=== PATIENT | male | born 1985 | race Caucasian/White ===

== ENCOUNTER 2021-02-09 19:10 | Inpatient (IN) | payer MEDICAID, OTHER ==
[2021-02-09 19:54] LABS: #Eosinphils 0.2 thou/uL (0.0-0.7); #Lymphocytes 1.5 thou/uL (1.20-3.40); #Monocytes 1.7 thou/uL (0.11-0.59); #Neutrophils 9.3 thou/uL (1.40-6.50); %Basophils 0.1 % (0.0-1.0); %Eosinophils 1.9 % (0.0-10.0); %Lymphocytes 11.9 % (21.0-51.0); %Monocytes 13.1 % (0.0-10.0); Mean Corpuscular HGB CONC 33.3 g/dL (32.0-36.0); Mean Corpuscular Hemoglobin 29.8 pg (27.0-31.0); Mean Corpuscular Volume 89.5 fL (78.0-98.0); Mean Platelet Volume 6.6 fL (7.4-10.4); Platelet Count 644 thou/uL (130-400); RBC Distribution Width 10.9 % (11.5-14.5); Red Blood Cell (RBC) Count 3.68 mill/uL (4.70-6.10); White Blood Cell (WBC) Count 12.8 thou/uL (4.8-10.8)
[2021-02-09] MEDS ORDERED: Vancomycin 1 GM/200 ML BAG ONE (19:59)
[2021-02-09] MEDS ORDERED: Cefepime 2 GM VIAL ONE (19:59)
[2021-02-09 20:09] LABS: ALT (SGPT) 28 U/L (8-55); AST (SGOT) 24 U/L (5-34); Albumin 3.3 g/dL (3.5-5.0); Alkaline Phosphatase 81 U/L (40-110); Anion Gap 16 mmol/L (10-20); BUN (Urea Nitrogen) 11 mg/dL (8.9-20.6); Bilirubin, Total 0.6 mg/dL (0.2-1.2); Calc. Creatinine Clearance 0 mL/min (70-130); Calcium 9.4 mg/dL (7.8-10.44); Carbon Dioxide 22 mmol/L (22-29); Chloride 99 mmol/L (98-107); Globulin 4.2 g/dL (2.4-3.5); Glucose 114 mg/dL (70-105); Potassium 3.6 mmol/L (3.5-5.1); Protein, Total 7.5 g/dL (6.0-8.3); Sodium 133 mmol/L (136-145)
[2021-02-09] MEDS ORDERED: Morphine 4 MG/ML VIAL ONE (21:24)
[2021-02-09] MEDS ORDERED: Methocarbamol 500 MG TAB PO PRN (22:49)
[2021-02-09] MEDS ORDERED: Acetaminophen 325 MG TAB PO PRN (22:50)
[2021-02-09] MEDS ORDERED: Ibuprofen 800 MG TAB PO PRN (22:50)
[2021-02-09 23:37] LABS: Bacteria/HPF None Seen HPF (None Seen); Bilirubin Negative (Negative); Blood, Urine Negative (Negative); Clarity Clear (Clear); Glucose, Urine (Dipstick) Normal (Negative); Ketone, Urine Trace mg/dL (Negative); Leukocyte Negative Leu/uL (Negative); Nitrite Negative (Negative); Protein, Urine (Dipstick) 30 mg/dL (Neg-Trace); RBC/HPF 0-3 HPF (0-3); Specific Gravity, Urine 1.025 (1.002-1.036); Squamous Epithelial 0-3 HPF (0-3); WBC/HPF 0-3 HPF (0-3)
[2021-02-09] MEDS ORDERED: Dextrose 50% Abboject 50 ML SYRINGE SLOW IVP PRN (23:57)
[2021-02-09] MEDS ORDERED: Acetaminophen 650 MG Suppository PR PRN (23:57)
[2021-02-09] MEDS ORDERED: Senokot S 8.6-50 MG TAB PO PRN (23:57)
[2021-02-09] MEDS ORDERED: Ondansetron ODT 4 MG TAB PO PRN (23:57)
[2021-02-09] MEDS ORDERED: Calcium Carbonate 500 MG ChewTAB PO PRN (23:57)
[2021-02-09] MEDS ORDERED: Ondansetron PF 4 MG/2 ML Vial IVP PRN (23:57)
[2021-02-09] MEDS ORDERED: HumaLOG 300 UNITS/3 ML VIAL SC PRN ×2 (23:57)
[2021-02-09] MEDS ORDERED: Dextrose 5% in Water 1,000 ML IV PRN (23:57)
[2021-02-09] MEDS ORDERED: Bisacodyl 5 MG TAB PO PRN (23:57)
[2021-02-09] MEDS ORDERED: Bisacodyl 10 MG SUPP PR PRN (23:57)
[2021-02-10] MEDS ORDERED: Morphine 4 MG/ML VIAL SLOW IVP SCH ×2 (00:45→05:00)
[2021-02-10 01:24] VITALS: BMI 41.2
[2021-02-10] MEDS: VANCOMYCIN 2 GRAM/400 ML BAG 2 GM in Premix Bag 1 BAG IVPB SCH ×3 (01:55→17:48)
[2021-02-10] MEDS: HYDROcodone/Acetaminophen 5/325 mg Tablet PO PRN ×2 (02:04→07:54)
[2021-02-10 02:10] LABS: Hemoglobin A1c 5.4 % (4.0-6.0)
[2021-02-10] MEDS ORDERED: Methocarbamol 500 MG TAB PO PRN (02:44)
[2021-02-10] MEDS ORDERED: Methocarbamol 500 MG TAB PO SCH ×2 (03:00→05:00)
[2021-02-10] MEDS: Cefepime 2 GM in Sodium Chloride 0.9% 100 ML IVPB SCH ×2 (07:55→23:36)
[2021-02-10] MEDS: Lisinopril 20 MG TAB PO SCH (07:56)
[2021-02-10] MEDS: Amlodipine 5 MG TAB PO SCH (07:56)
[2021-02-10] MEDS: metFORMIN 500 MG TAB PO SCH (07:58)
[2021-02-10] MEDS: Enoxaparin Sodium 40 MG/0.4 ML SYRINGE SC SCH (07:58)
[2021-02-10] MEDS ORDERED: HYDROcodone/Acetaminophen 7.5/325 mg Tablet PO SCH (08:00)
[2021-02-10 08:52] LABS: #Eosinphils 0.2 thou/uL (0.0-0.7); #Lymphocytes 1.4 thou/uL (1.20-3.40); #Monocytes 1.7 thou/uL (0.11-0.59); #Neutrophils 10.1 thou/uL (1.40-6.50); %Basophils 0.2 % (0.0-1.0); %Eosinophils 1.5 % (0.0-10.0); %Lymphocytes 10.2 % (21.0-51.0); %Monocytes 12.6 % (0.0-10.0); %Neutrophils 75.6 % (42.0-75.0); Hemoglobin 9.8 g/dL (14.0-18.0); Mean Corpuscular HGB CONC 32.3 g/dL (32.0-36.0); Mean Corpuscular Volume 89.8 fL (78.0-98.0); Mean Platelet Volume 6.4 fL (7.4-10.4); Platelet Count 607 thou/uL (130-400); RBC Distribution Width 10.9 % (11.5-14.5); Red Blood Cell (RBC) Count 3.37 mill/uL (4.70-6.10); White Blood Cell (WBC) Count 13.4 thou/uL (4.8-10.8)
[2021-02-10] MEDS ORDERED: Ibuprofen 800 MG TAB PO SCH (09:00)
[2021-02-10] MEDS: Morphine 4 MG/ML VIAL SLOW IVP PRN ×2 (09:00→12:46)
[2021-02-10] MEDS ORDERED: metFORMIN 500 MG TAB PO SCH (09:00)
[2021-02-10 09:14] LABS: Anion Gap 15 mmol/L (10-20); BUN (Urea Nitrogen) 8 mg/dL (8.9-20.6); Calc. Creatinine Clearance 298 mL/min (70-130); Calcium 9.5 mg/dL (7.8-10.44); Carbon Dioxide 20 mmol/L (22-29); Chloride 101 mmol/L (98-107); Glucose 103 mg/dL (70-105); Potassium 3.6 mmol/L (3.5-5.1); Sodium 132 mmol/L (136-145)
[2021-02-10] MEDS ORDERED: Pregabalin 50 MG CAP PO SCH (11:15)
[2021-02-10 11:18] LABS: SARS-CoV-2 PCR by NAA Not Detected (NotDetected)
[2021-02-10] MEDS ORDERED: diphenhydrAMINE 25 MG CAP PO PRN (13:00)
[2021-02-10] MEDS ORDERED: Promethazine HCl 25 MG/ML VIAL IM PRN ×2 (13:00→16:00)
[2021-02-10] MEDS ORDERED: diphenhydrAMINE 50 MG/ML VIAL IM/IV PRN (13:00)
[2021-02-10] MEDS ORDERED: Morphine 4 MG/ML VIAL SLOW IVP PRN (13:00)
[2021-02-10] MEDS ORDERED: Naloxone HCl 0.4 mg/ml Vial IV PRN (13:00)
[2021-02-10] MEDS ORDERED: Fentanyl 100 MCG/2 ML VIAL ONE ×2 (14:22→14:36)
[2021-02-10] MEDS ORDERED: Ondansetron PF 4 MG/2 ML Vial ONE (14:45)
[2021-02-10] MEDS ORDERED: PROPOFOL 200 MG/20 ML VIAL ONE (14:45)
[2021-02-10] MEDS ORDERED: Promethazine HCl 25 MG/ML VIAL SLOW IVP PRN (16:00)
[2021-02-10] MEDS ORDERED: Meperidine HCl/PF 25 MG/ML VIAL SLOW IVP PRN (16:00)
[2021-02-10] MEDS ORDERED: HYDROmorphone 2 MG/ML VIAL SLOW IVP PRN (16:00)
[2021-02-10] MEDS: Acetaminophen 325 MG TAB PO SCH ×2 (16:52→19:53)
[2021-02-10] MEDS: Fentanyl CADD 100 ML IVPB SCH (16:53)
[2021-02-10] MEDS: Lactated Ringer's 1,000 ML IV SCH ×2 (17:48→23:29)
[2021-02-10] MEDS: Pregabalin 50 MG CAP PO SCH (21:37)
[2021-02-10] MEDS: Sodium Chloride 0.9% 1,000 ML IV SCH (23:33)
[2021-02-11] MEDS: Acetaminophen 325 MG TAB PO SCH ×5 (01:18→19:00)
[2021-02-11 01:52] LABS: Vancomycin, Trough 19.5 ug/mL
[2021-02-11] MEDS: VANCOMYCIN 2 GRAM/400 ML BAG 2 GM in Premix Bag 1 BAG IVPB SCH ×3 (02:11→17:53)
[2021-02-11] MEDS: Methocarbamol 500 MG TAB PO PRN (02:11)
[2021-02-11] MEDS: Lactated Ringer's 1,000 ML IV SCH (03:50)
[2021-02-11] MEDS: Fentanyl CADD 100 ML IVPB SCH ×2 (05:06→19:37)
[2021-02-11 06:21] LABS: #Eosinphils 0.3 thou/uL (0.0-0.7); #Lymphocytes 1.7 thou/uL (1.20-3.40); #Neutrophils 11.1 thou/uL (1.40-6.50); %Basophils 0.1 % (0.0-1.0); %Eosinophils 2.1 % (0.0-10.0); %Lymphocytes 11.3 % (21.0-51.0); %Monocytes 13.2 % (0.0-10.0); %Neutrophils 73.2 % (42.0-75.0); Hemoglobin 9.9 g/dL (14.0-18.0); Mean Corpuscular HGB CONC 32.3 g/dL (32.0-36.0); Mean Corpuscular Hemoglobin 29.3 pg (27.0-31.0); Mean Corpuscular Volume 90.8 fL (78.0-98.0); Mean Platelet Volume 6.6 fL (7.4-10.4); Platelet Count 558 thou/uL (130-400); Red Blood Cell (RBC) Count 3.36 mill/uL (4.70-6.10); White Blood Cell (WBC) Count 15.1 thou/uL (4.8-10.8)
[2021-02-11 06:40] LABS: Anion Gap 15 mmol/L (10-20); BUN (Urea Nitrogen) 7 mg/dL (8.9-20.6); Calc. Creatinine Clearance 316 mL/min (70-130); Calcium 8.9 mg/dL (7.8-10.44); Carbon Dioxide 21 mmol/L (22-29); Chloride 101 mmol/L (98-107); Glucose 104 mg/dL (70-105); Potassium 3.4 mmol/L (3.5-5.1); Sodium 134 mmol/L (136-145)
[2021-02-11] MEDS: Pregabalin 50 MG CAP PO SCH ×3 (07:31→23:42)
[2021-02-11] MEDS: Ondansetron PF 4 MG/2 ML Vial IVP PRN (07:38)
[2021-02-11] MEDS: Enoxaparin Sodium 40 MG/0.4 ML SYRINGE SC SCH (08:59)
[2021-02-11] MEDS: Amlodipine 5 MG TAB PO SCH (09:01)
[2021-02-11] MEDS: Lisinopril 20 MG TAB PO SCH (09:02)
[2021-02-11] MEDS: Cefepime 2 GM in Sodium Chloride 0.9% 100 ML IVPB SCH ×2 (09:02→23:41)
[2021-02-11] MEDS: metFORMIN 500 MG TAB PO SCH (09:02)
[2021-02-11] MEDS ORDERED: Potassium Chloride 20 MEQ TAB PO SCH (09:15)
[2021-02-11] MEDS ORDERED: Pregabalin 50 MG CAP PO SCH (10:30)
[2021-02-11] MEDS ORDERED: Fentanyl 250 MCG/5 ML VIAL ONE (13:08)
[2021-02-11] MEDS ORDERED: Lidocaine 1% PF 5 ML VIAL ONE (13:30)
[2021-02-11] MEDS ORDERED: Rocuronium Bromide 10 MG/ML (10ML VIAL) ONE (13:30)
[2021-02-11] MEDS ORDERED: Succinylcholine 200 MG/10 ml SYRINGE FS ONE (13:30)
[2021-02-11] MEDS ORDERED: Dexamethasone 20 MG/5 ML VIAL ONE (13:30)
[2021-02-11] MEDS ORDERED: Ondansetron PF 4 MG/2 ML Vial ONE (13:30)
[2021-02-11] MEDS ORDERED: Glycopyrrolate 0.2 MG/ML 5 ML SYRINGE ONE (13:30)
[2021-02-11] MEDS ORDERED: PHENYLEPHRINE-NS 100 MCG/ML 10 ML SYRINGE ONE (13:30)
[2021-02-11] MEDS ORDERED: PROPOFOL 200 MG/20 ML VIAL ONE (13:30)
[2021-02-11] MEDS ORDERED: Fentanyl 100 MCG/2 ML VIAL ONE ×3 (15:26→16:45)
[2021-02-11] MEDS ORDERED: HYDROmorphone 2 MG/ML VIAL ONE (15:54)
[2021-02-11] MEDS: Sodium Chloride 0.9% 1,000 ML IV SCH (17:22)
[2021-02-11] MEDS ORDERED: Pregabalin 75 MG CAP PO SCH (23:59)
[2021-02-12] MEDS: Acetaminophen 325 MG TAB PO SCH ×4 (00:21→18:32)
[2021-02-12 01:41] LABS: Vancomycin, Trough 7.5 ug/mL
[2021-02-12] MEDS: Sodium Chloride 0.9% 1,000 ML IV SCH ×2 (01:50→05:09)
[2021-02-12] MEDS: VANCOMYCIN 2 GRAM/400 ML BAG 2 GM in Premix Bag 1 BAG IVPB SCH ×3 (02:48→18:31)
[2021-02-12] MEDS: Fentanyl CADD 100 ML IVPB SCH ×2 (05:50→16:04)
[2021-02-12 05:57] LABS: #Lymphocytes 1.1 thou/uL (1.20-3.40); #Monocytes 1.1 thou/uL (0.11-0.59); #Neutrophils 10.5 thou/uL (1.40-6.50); %Basophils 0.1 % (0.0-1.0); %Eosinophils 0.2 % (0.0-10.0); %Lymphocytes 8.6 % (21.0-51.0); %Monocytes 8.8 % (0.0-10.0); %Neutrophils 82.3 % (42.0-75.0); Hemoglobin 9.8 g/dL (14.0-18.0); Mean Corpuscular Hemoglobin 29.2 pg (27.0-31.0); Mean Corpuscular Volume 91.4 fL (78.0-98.0); Mean Platelet Volume 6.8 fL (7.4-10.4); Platelet Count 560 thou/uL (130-400); RBC Distribution Width 10.9 % (11.5-14.5); Red Blood Cell (RBC) Count 3.35 mill/uL (4.70-6.10); White Blood Cell (WBC) Count 12.8 thou/uL (4.8-10.8)
[2021-02-12 06:27] LABS: Anion Gap 13 mmol/L (10-20); BUN (Urea Nitrogen) 6 mg/dL (8.9-20.6); Calc. Creatinine Clearance 348 mL/min (70-130); Calcium 9.4 mg/dL (7.8-10.44); Carbon Dioxide 24 mmol/L (22-29); Chloride 102 mmol/L (98-107); Glucose 144 mg/dL (70-105); Potassium 3.7 mmol/L (3.5-5.1); Sodium 135 mmol/L (136-145)
[2021-02-12] MEDS ORDERED: Pregabalin 75 MG CAP PO SCH (09:00)
[2021-02-12] MEDS: Lisinopril 20 MG TAB PO SCH (09:15)
[2021-02-12] MEDS: Amlodipine 5 MG TAB PO SCH (09:15)
[2021-02-12] MEDS: metFORMIN 500 MG TAB PO SCH (09:15)
[2021-02-12] MEDS: Pregabalin 75 MG CAP PO SCH ×2 (09:16→20:10)
[2021-02-12] MEDS: Enoxaparin Sodium 40 MG/0.4 ML SYRINGE SC SCH (09:16)
[2021-02-12] MEDS: Cefepime 2 GM in Sodium Chloride 0.9% 100 ML IVPB SCH ×3 (09:17→21:56)
[2021-02-13] MEDS: Acetaminophen 325 MG TAB PO SCH ×4 (01:14→18:22)
[2021-02-13 01:41] LABS: Vancomycin, Trough 18.5 ug/mL
[2021-02-13] MEDS: VANCOMYCIN 2 GRAM/400 ML BAG 2 GM in Premix Bag 1 BAG IVPB SCH ×3 (02:10→18:21)
[2021-02-13] MEDS: Sodium Chloride 0.9% 1,000 ML IV SCH ×2 (02:11→18:21)
[2021-02-13] MEDS: Fentanyl CADD 100 ML IVPB SCH ×2 (04:59→13:41)
[2021-02-13 06:07] LABS: #Eosinphils 0.1 thou/uL (0.0-0.7); #Monocytes 1.1 thou/uL (0.11-0.59); #Neutrophils 7.9 thou/uL (1.40-6.50); %Basophils 0.3 % (0.0-1.0); %Eosinophils 1.2 % (0.0-10.0); %Neutrophils 70.5 % (42.0-75.0); Hemoglobin 10.2 g/dL (14.0-18.0); Mean Corpuscular HGB CONC 32.9 g/dL (32.0-36.0); Mean Corpuscular Hemoglobin 30.6 pg (27.0-31.0); Mean Corpuscular Volume 93.1 fL (78.0-98.0); Mean Platelet Volume 6.9 fL (7.4-10.4); Platelet Count 660 thou/uL (130-400); RBC Distribution Width 10.9 % (11.5-14.5); Red Blood Cell (RBC) Count 3.33 mill/uL (4.70-6.10); White Blood Cell (WBC) Count 11.2 thou/uL (4.8-10.8)
[2021-02-13 06:25] LABS: Anion Gap 13 mmol/L (10-20); BUN (Urea Nitrogen) 9 mg/dL (8.9-20.6); Calc. Creatinine Clearance 360 mL/min (70-130); Calcium 8.8 mg/dL (7.8-10.44); Carbon Dioxide 25 mmol/L (22-29); Chloride 104 mmol/L (98-107); Glucose 92 mg/dL (70-105); Potassium 3.6 mmol/L (3.5-5.1); Sodium 138 mmol/L (136-145)
[2021-02-13] MEDS: metFORMIN 500 MG TAB PO SCH (08:07)
[2021-02-13] MEDS: Pregabalin 75 MG CAP PO SCH ×2 (08:08→20:40)
[2021-02-13] MEDS: Lisinopril 20 MG TAB PO SCH (08:09)
[2021-02-13] MEDS: Enoxaparin Sodium 40 MG/0.4 ML SYRINGE SC SCH (08:09)
[2021-02-13] MEDS: Amlodipine 5 MG TAB PO SCH (08:09)
[2021-02-13] MEDS: Cefepime 2 GM in Sodium Chloride 0.9% 100 ML IVPB SCH ×2 (08:09→20:41)
[2021-02-13] MEDS: Polyethylene Glycol 3350 17 GM Packet PO SCH (08:23)
[2021-02-13] MEDS: Methocarbamol 500 MG TAB PO PRN (23:11)
[2021-02-14] MEDS: Fentanyl CADD 100 ML IVPB SCH ×3 (00:40→23:37)
[2021-02-14] MEDS: Zolpidem Tartrate 5 MG TAB PO PRN (01:09)
[2021-02-14] MEDS: Acetaminophen 325 MG TAB PO SCH ×4 (01:09→17:29)
[2021-02-14] MEDS: VANCOMYCIN 2 GRAM/400 ML BAG 2 GM in Premix Bag 1 BAG IVPB SCH (01:09)
[2021-02-14 06:02] LABS: #Eosinphils 0.3 thou/uL (0.0-0.7); #Neutrophils 5.2 thou/uL (1.40-6.50); %Basophils 0.5 % (0.0-1.0); %Eosinophils 3.1 % (0.0-10.0); %Lymphocytes 23.8 % (21.0-51.0); %Monocytes 11.8 % (0.0-10.0); %Neutrophils 60.8 % (42.0-75.0); Hemoglobin 10.3 g/dL (14.0-18.0); Mean Corpuscular HGB CONC 32.3 g/dL (32.0-36.0); Mean Corpuscular Hemoglobin 29.2 pg (27.0-31.0); Mean Corpuscular Volume 90.4 fL (78.0-98.0); Mean Platelet Volume 6.8 fL (7.4-10.4); Platelet Count 612 thou/uL (130-400); RBC Distribution Width 11.1 % (11.5-14.5); Red Blood Cell (RBC) Count 3.52 mill/uL (4.70-6.10); White Blood Cell (WBC) Count 8.5 thou/uL (4.8-10.8)
[2021-02-14 06:18] LABS: Anion Gap 12 mmol/L (10-20); BUN (Urea Nitrogen) 8 mg/dL (8.9-20.6); Calc. Creatinine Clearance 366 mL/min (70-130); Calcium 9.2 mg/dL (7.8-10.44); Carbon Dioxide 26 mmol/L (22-29); Chloride 106 mmol/L (98-107); Glucose 85 mg/dL (70-105); Potassium 3.4 mmol/L (3.5-5.1); Sodium 141 mmol/L (136-145)
[2021-02-14] MEDS: Sodium Chloride 0.9% 1,000 ML IV SCH ×3 (06:24→20:44)
[2021-02-14] MEDS ORDERED: Potassium Chloride 20 MEQ TAB PO SCH (07:00)
[2021-02-14] MEDS: Amlodipine 5 MG TAB PO SCH (07:57)
[2021-02-14] MEDS: metFORMIN 500 MG TAB PO SCH (07:57)
[2021-02-14] MEDS: Cefepime 2 GM in Sodium Chloride 0.9% 100 ML IVPB SCH ×2 (07:58→20:39)
[2021-02-14] MEDS: Pregabalin 75 MG CAP PO SCH ×2 (07:58→20:38)
[2021-02-14] MEDS: Lisinopril 20 MG TAB PO SCH (07:58)
[2021-02-14] MEDS: Enoxaparin Sodium 40 MG/0.4 ML SYRINGE SC SCH (07:58)
[2021-02-14] MEDS: Polyethylene Glycol 3350 17 GM Packet PO SCH (07:59)
[2021-02-14 09:32] LABS: Vancomycin, Trough 22.2 ug/mL
[2021-02-14] MEDS: Ondansetron PF 4 MG/2 ML Vial IVP PRN (09:47)
[2021-02-14] MEDS: Methocarbamol 500 MG TAB PO PRN (11:14)
[2021-02-14] MEDS: VANCOMYCIN 1.75 GM/350 ML BAG 1.75 GM in Premix Bag 1 BAG IVPB SCH (11:15)
[2021-02-15] MEDS: Acetaminophen 325 MG TAB PO SCH ×4 (00:21→21:10)
[2021-02-15] MEDS: Zolpidem Tartrate 5 MG TAB PO PRN (00:21)
[2021-02-15] MEDS: VANCOMYCIN 1.75 GM/350 ML BAG 1.75 GM in Premix Bag 1 BAG IVPB SCH ×5 (00:21→21:19)
[2021-02-15] MEDS: Ondansetron PF 4 MG/2 ML Vial IVP PRN (06:00)
[2021-02-15 06:17] LABS: Anion Gap 14 mmol/L (10-20); BUN (Urea Nitrogen) 6 mg/dL (8.9-20.6); Calc. Creatinine Clearance 331 mL/min (70-130); Calcium 9.2 mg/dL (7.8-10.44); Carbon Dioxide 27 mmol/L (22-29); Chloride 102 mmol/L (98-107); Glucose 95 mg/dL (70-105); Potassium 3.8 mmol/L (3.5-5.1); Sodium 139 mmol/L (136-145)
[2021-02-15] MEDS: Pregabalin 75 MG CAP PO SCH ×2 (08:15→21:11)
[2021-02-15] MEDS: Amlodipine 5 MG TAB PO SCH (08:16)
[2021-02-15] MEDS: Lisinopril 20 MG TAB PO SCH (08:16)
[2021-02-15] MEDS: metFORMIN 500 MG TAB PO SCH (08:16)
[2021-02-15] MEDS: Polyethylene Glycol 3350 17 GM Packet PO SCH (08:17)
[2021-02-15] MEDS: Enoxaparin Sodium 40 MG/0.4 ML SYRINGE SC SCH (08:17)
[2021-02-15] MEDS: Cefepime 2 GM in Sodium Chloride 0.9% 100 ML IVPB SCH ×2 (08:17→21:11)
[2021-02-15] MEDS: Sodium Chloride 0.9% 1,000 ML IV SCH ×2 (08:18→21:12)
[2021-02-15] MEDS: Fentanyl CADD 100 ML IVPB SCH (13:00)
[2021-02-15] MEDS: Baclofen 10 MG TAB PO SCH ×2 (14:37→21:11)
[2021-02-16] MEDS: Zolpidem Tartrate 5 MG TAB PO PRN (00:04)
[2021-02-16] MEDS: Acetaminophen 325 MG TAB PO SCH ×4 (00:04→18:29)
[2021-02-16] MEDS: VANCOMYCIN 1.75 GM/350 ML BAG 1.75 GM in Premix Bag 1 BAG IVPB SCH (05:56)
[2021-02-16] MEDS: Fentanyl CADD 100 ML IVPB SCH ×2 (06:20→17:34)
[2021-02-16] MEDS: Enoxaparin Sodium 40 MG/0.4 ML SYRINGE SC SCH (08:27)
[2021-02-16] MEDS: Polyethylene Glycol 3350 17 GM Packet PO SCH (08:27)
[2021-02-16] MEDS: Pregabalin 75 MG CAP PO SCH ×2 (08:28→20:52)
[2021-02-16] MEDS: Lisinopril 20 MG TAB PO SCH (08:29)
[2021-02-16] MEDS: Baclofen 10 MG TAB PO SCH ×3 (08:29→20:51)
[2021-02-16] MEDS: Amlodipine 5 MG TAB PO SCH (08:29)
[2021-02-16] MEDS: Cefepime 2 GM in Sodium Chloride 0.9% 100 ML IVPB SCH ×2 (08:29→20:52)
[2021-02-16] MEDS: metFORMIN 500 MG TAB PO SCH (08:29)
[2021-02-16] MEDS: HYDROcodone/Acetaminophen 5/325 mg Tablet PO PRN ×2 (12:13→18:30)
[2021-02-16 13:33] LABS: Vancomycin, Trough 20.3 ug/mL
[2021-02-16] MEDS: Ondansetron PF 4 MG/2 ML Vial IVP PRN ×2 (14:08→19:43)
[2021-02-16] MEDS: Vancomycin 1.5 GRAM/300 ML BAG 1.5 GM in Premix Bag 1 BAG IVPB SCH ×2 (14:14→20:52)
[2021-02-16] MEDS: Sodium Chloride 0.9% 1,000 ML IV SCH (14:15)
[2021-02-17] MEDS: Zolpidem Tartrate 5 MG TAB PO PRN ×2 (00:54→23:35)
[2021-02-17] MEDS: Acetaminophen 325 MG TAB PO SCH ×4 (00:54→18:06)
[2021-02-17] MEDS: Sodium Chloride 0.9% 1,000 ML IV SCH ×3 (05:42→20:31)
[2021-02-17] MEDS: Vancomycin 1.5 GRAM/300 ML BAG 1.5 GM in Premix Bag 1 BAG IVPB SCH ×3 (05:43→22:42)
[2021-02-17] MEDS: Ondansetron PF 4 MG/2 ML Vial IVP PRN (09:22)
[2021-02-17] MEDS: Lisinopril 20 MG TAB PO SCH (09:22)
[2021-02-17] MEDS: Baclofen 10 MG TAB PO SCH ×3 (09:22→20:23)
[2021-02-17] MEDS: Cefepime 2 GM in Sodium Chloride 0.9% 100 ML IVPB SCH ×2 (09:23→20:24)
[2021-02-17] MEDS: Pregabalin 75 MG CAP PO SCH ×2 (09:23→20:23)
[2021-02-17] MEDS: Amlodipine 10 MG TAB PO SCH (09:23)
[2021-02-17] MEDS: Enoxaparin Sodium 40 MG/0.4 ML SYRINGE SC SCH (09:23)
[2021-02-17] MEDS: metFORMIN 500 MG TAB PO SCH (09:23)
[2021-02-17] MEDS: Fentanyl CADD 100 ML IVPB SCH (09:35)
[2021-02-17] MEDS ORDERED: HYDROcodone/Acetaminophen 7.5/325 mg Tablet PO PRN (11:09)
[2021-02-17] MEDS: Polyethylene Glycol 3350 17 GM Packet PO SCH (11:58)
[2021-02-17] MEDS: fentaNYL 50 mcg/hour Patch TD SCH (13:07)
[2021-02-17 13:24] LABS: Vancomycin, Trough 18.5 ug/mL
[2021-02-17] MEDS: HYDROcodone/Acetaminophen 7.5/325 mg Tablet PO PRN (20:27)
[2021-02-18] MEDS: Acetaminophen 325 MG TAB PO SCH ×4 (01:09→17:34)
[2021-02-18] MEDS: HYDROcodone/Acetaminophen 7.5/325 mg Tablet PO PRN ×4 (01:10→23:21)
[2021-02-18] MEDS: Vancomycin 1.5 GRAM/300 ML BAG 1.5 GM in Premix Bag 1 BAG IVPB SCH (05:30)
[2021-02-18] MEDS: Baclofen 10 MG TAB PO SCH ×3 (08:00→20:33)
[2021-02-18] MEDS: Amlodipine 10 MG TAB PO SCH (08:00)
[2021-02-18] MEDS: Pregabalin 75 MG CAP PO SCH ×2 (08:00→20:32)
[2021-02-18] MEDS: Enoxaparin Sodium 40 MG/0.4 ML SYRINGE SC SCH (08:00)
[2021-02-18] MEDS: metFORMIN 500 MG TAB PO SCH (08:00)
[2021-02-18] MEDS: Sodium Chloride 0.9% 1,000 ML IV SCH (08:01)
[2021-02-18] MEDS: Polyethylene Glycol 3350 17 GM Packet PO SCH (08:01)
[2021-02-18] MEDS: Lisinopril 20 MG TAB PO SCH (08:01)
[2021-02-18] MEDS ORDERED: hydrOXYzine 25 MG TAB PO PRN (08:24)
[2021-02-18] MEDS: Ondansetron PF 4 MG/2 ML Vial IVP PRN (10:20)
[2021-02-18] MEDS: Zolpidem Tartrate 5 MG TAB PO PRN (23:21)
[2021-02-19] MEDS: Acetaminophen 325 MG TAB PO SCH ×2 (00:42→06:12)
[2021-02-19] MEDS: HYDROcodone/Acetaminophen 7.5/325 mg Tablet PO PRN ×3 (08:03→19:15)
[2021-02-19] MEDS: Polyethylene Glycol 3350 17 GM Packet PO SCH (08:03)
[2021-02-19] MEDS: Pregabalin 75 MG CAP PO SCH ×2 (08:04→20:24)
[2021-02-19] MEDS: metFORMIN 500 MG TAB PO SCH (08:05)
[2021-02-19] MEDS: Lisinopril 20 MG TAB PO SCH (08:05)
[2021-02-19] MEDS: Baclofen 10 MG TAB PO SCH ×3 (08:05→20:25)
[2021-02-19] MEDS: Amlodipine 10 MG TAB PO SCH (08:05)
[2021-02-19] MEDS: Enoxaparin Sodium 40 MG/0.4 ML SYRINGE SC SCH (08:06)
[2021-02-19] MEDS ORDERED: Acetaminophen 325 MG TAB PO PRN (08:26)
[2021-02-19] MEDS: Ondansetron PF 4 MG/2 ML Vial IVP PRN ×2 (10:57→19:15)
[2021-02-19] MEDS: Zolpidem Tartrate 5 MG TAB PO PRN (23:39)
[2021-02-20] MEDS: HYDROcodone/Acetaminophen 7.5/325 mg Tablet PO PRN ×2 (01:16→07:57)
[2021-02-20] MEDS: Enoxaparin Sodium 40 MG/0.4 ML SYRINGE SC SCH (07:55)
[2021-02-20] MEDS: Polyethylene Glycol 3350 17 GM Packet PO SCH (07:55)
[2021-02-20] MEDS: Lisinopril 20 MG TAB PO SCH (07:56)
[2021-02-20] MEDS: Amlodipine 10 MG TAB PO SCH (07:56)
[2021-02-20] MEDS: Baclofen 10 MG TAB PO SCH ×3 (07:57→21:12)
[2021-02-20] MEDS: metFORMIN 500 MG TAB PO SCH (07:57)
[2021-02-20] MEDS: Pregabalin 75 MG CAP PO SCH ×2 (07:58→21:12)
[2021-02-20] MEDS: fentaNYL 50 mcg/hour Patch TD SCH (11:50)
[2021-02-20] MEDS ORDERED: Morphine 4 MG/ML VIAL SLOW IVP PRN (13:21)
[2021-02-20] MEDS: HYDROcodone/Acetaminophen 10/325 mg Tablet PO PRN ×2 (14:15→20:01)
[2021-02-20] MEDS: Zolpidem Tartrate 5 MG TAB PO PRN (23:13)
[2021-02-21] MEDS: HYDROcodone/Acetaminophen 10/325 mg Tablet PO PRN ×4 (02:04→22:40)
[2021-02-21] MEDS: Amlodipine 10 MG TAB PO SCH (08:20)
[2021-02-21] MEDS: metFORMIN 500 MG TAB PO SCH (08:20)
[2021-02-21] MEDS: Baclofen 10 MG TAB PO SCH ×3 (08:21→19:44)
[2021-02-21] MEDS: Lisinopril 20 MG TAB PO SCH (08:21)
[2021-02-21] MEDS: Enoxaparin Sodium 40 MG/0.4 ML SYRINGE SC SCH (08:21)
[2021-02-21] MEDS: Pregabalin 75 MG CAP PO SCH ×2 (08:22→19:43)
[2021-02-21] MEDS: Polyethylene Glycol 3350 17 GM Packet PO SCH ×2 (08:22→10:39)
[2021-02-21] MEDS: Ondansetron PF 4 MG/2 ML Vial IVP PRN (09:35)
[2021-02-21] MEDS: Acetaminophen 325 MG TAB PO SCH ×2 (11:05→17:07)
[2021-02-22] MEDS: Zolpidem Tartrate 5 MG TAB PO PRN ×2 (00:01→23:34)
[2021-02-22] MEDS: Acetaminophen 325 MG TAB PO SCH ×5 (05:45→23:34)
[2021-02-22] MEDS: Pregabalin 75 MG CAP PO SCH ×2 (08:13→20:41)
[2021-02-22] MEDS: Lisinopril 20 MG TAB PO SCH (08:13)
[2021-02-22] MEDS: metFORMIN 500 MG TAB PO SCH (08:13)
[2021-02-22] MEDS: Polyethylene Glycol 3350 17 GM Packet PO SCH (08:14)
[2021-02-22] MEDS: Baclofen 10 MG TAB PO SCH ×3 (08:14→20:41)
[2021-02-22] MEDS: Enoxaparin Sodium 40 MG/0.4 ML SYRINGE SC SCH (08:15)
[2021-02-22] MEDS: Amlodipine 10 MG TAB PO SCH (08:15)
[2021-02-22] MEDS: HYDROcodone/Acetaminophen 10/325 mg Tablet PO PRN ×3 (08:15→23:34)
[2021-02-23] MEDS: Acetaminophen 325 MG TAB PO SCH ×4 (06:30→23:43)
[2021-02-23] MEDS: Pregabalin 75 MG CAP PO SCH ×2 (07:44→20:30)
[2021-02-23] MEDS: Enoxaparin Sodium 40 MG/0.4 ML SYRINGE SC SCH (07:44)
[2021-02-23] MEDS: Polyethylene Glycol 3350 17 GM Packet PO SCH (07:44)
[2021-02-23] MEDS: Baclofen 10 MG TAB PO SCH ×3 (07:45→20:30)
[2021-02-23] MEDS: metFORMIN 500 MG TAB PO SCH (07:45)
[2021-02-23] MEDS: Amlodipine 10 MG TAB PO SCH (07:45)
[2021-02-23] MEDS: Lisinopril 20 MG TAB PO SCH (07:45)
[2021-02-23] MEDS: HYDROcodone/Acetaminophen 10/325 mg Tablet PO PRN ×2 (09:52→20:32)
[2021-02-23] MEDS ORDERED: Sterile Water 10 ML ONE (11:34)
[2021-02-23] MEDS: fentaNYL 50 mcg/hour Patch TD SCH (12:12)
[2021-02-23] MEDS: Zolpidem Tartrate 5 MG TAB PO PRN (23:43)
[2021-02-24] MEDS: Acetaminophen 325 MG TAB PO SCH ×2 (05:59→12:05)
[2021-02-24] MEDS: HYDROcodone/Acetaminophen 10/325 mg Tablet PO PRN (07:40)
[2021-02-24] MEDS: Baclofen 10 MG TAB PO SCH ×2 (08:57→14:47)
[2021-02-24] MEDS: Lisinopril 20 MG TAB PO SCH (08:57)
[2021-02-24] MEDS: Amlodipine 10 MG TAB PO SCH (08:59)
[2021-02-24] MEDS: metFORMIN 500 MG TAB PO SCH (08:59)
[2021-02-24] MEDS: Pregabalin 75 MG CAP PO SCH (08:59)
[2021-02-24] MEDS: Enoxaparin Sodium 40 MG/0.4 ML SYRINGE SC SCH (09:00)
[2021-02-24] MEDS: Polyethylene Glycol 3350 17 GM Packet PO SCH (09:00)
[2021-02-24] MEDS ORDERED: Morphine 4 MG/ML VIAL SLOW IVP PRN (12:09)
[2021-02-24 18:23] VITALS: BP 114/74; TEMP 97.7
== END 2021-02-24 17:52 | disposition home or self-care (01) | DRG 853 ==
LOC: ERS 19:10 → T4-A 21:40 → T4-B 02-11 17:17
PROVIDERS: ADMIT Family Medicine; ATTEND Family Medicine
PROC: 0KBN0ZZ Excision of Right Hip Muscle, Open Approach (ICD-10-PCS; principal; 2021-02-11)
DX: A41.9 Sepsis, unspecified organism (principal); L89.154 Pressure ulcer of sacral region, stage 4; G82.20 Paraplegia, unspecified; G83.4 Cauda equina syndrome; L03.317 Cellulitis of buttock; L03.115 Cellulitis of right lower limb; Z20.822 Contact with and (suspected) exposure to COVID-19; E11.9 Type 2 diabetes mellitus without complications; I10 Essential (primary) hypertension; L89.312 Pressure ulcer of right buttock, stage 2; N49.2 Inflammatory disorders of scrotum; R32 Unspecified urinary incontinence; M54.9 Dorsalgia, unspecified; G89.29 Other chronic pain; M62.838 Other muscle spasm; Z79.84 Long term (current) use of oral hypoglycemic drugs; Z79.899 Other long term (current) drug therapy
CPT/HCPCS: 36415; 36416; 51702; 71045; 72197; 80048; 80053; 80202; 81003; 81015; 83036; 83605; 84145; 85025; 85652; 86140; 87040; 87070; 87077; 87086; 87186; 87205; 87635; 88304; 93005; 96365; 96366; 96375; J0692; J1100; J1170; J1650; J2270; J2405; J2550; J2704; J3010; J3370; J3490; U0003; U0005

== ENCOUNTER 2021-04-03 15:00 | Inpatient (IN) | payer OTHER ==
[~2021-04-03 15:00] MED LIST: Iopamidol-370 76% 500 ML 1 ML ONE
[2021-04-03 16:05] LABS: Hemoglobin 10.9 g/dL (14.0-18.0); Mean Corpuscular HGB CONC 35.1 g/dL (32.0-36.0); Mean Corpuscular Hemoglobin 30.8 pg (27.0-31.0); Mean Corpuscular Volume 87.5 fL (78.0-98.0); Mean Platelet Volume 7.1 fL (7.4-10.4); Platelet Count 480 thou/uL (130-400); RBC Distribution Width 11.8 % (11.5-14.5); Red Blood Cell (RBC) Count 3.53 mill/uL (4.70-6.10); White Blood Cell (WBC) Count 11.6 thou/uL (4.8-10.8)
[2021-04-03 16:24] LABS: ALT (SGPT) 31 U/L (8-55); AST (SGOT) 20 U/L (5-34); Albumin 3.8 g/dL (3.5-5.0); Alkaline Phosphatase 96 U/L (40-110); Anion Gap 13 mmol/L (10-20); BUN (Urea Nitrogen) 16 mg/dL (8.9-20.6); Bilirubin, Total 0.3 mg/dL (0.2-1.2); Calc. Creatinine Clearance 0 mL/min (70-130); Calcium 9.8 mg/dL (7.8-10.44); Carbon Dioxide 23 mmol/L (22-29); Chloride 105 mmol/L (98-107); Globulin 3.9 g/dL (2.4-3.5); Glucose 101 mg/dL (70-105); Potassium 3.9 mmol/L (3.5-5.1); Protein, Total 7.7 g/dL (6.0-8.3); Sodium 137 mmol/L (136-145)
[2021-04-03 16:32] LABS: Band 4 % (5-11); Eosinophils 5 % (0-10); Lymphocytes 19 % (21-51); MDiff Complete? YES; Monocytes 14 % (0-10); Neutrophil 58 % (42-75); Platelet Morphology Comment Appears Increased; Polychromasia SLIGHT = 2-3 cells (100X) (0-2/hpf)
[2021-04-03] MEDS ORDERED: Morphine 4 MG/ML VIAL ONE (16:48)
[2021-04-03] MEDS ORDERED: Ondansetron PF 4 MG/2 ML Vial ONE (16:48)
[2021-04-03] MEDS ORDERED: Ondansetron ODT 4 MG TAB SL PRN (17:00)
[2021-04-03] MEDS ORDERED: Ondansetron PF 4 MG/2 ML Vial IVP PRN (17:00)
[2021-04-03] MEDS ORDERED: Acetaminophen 325 MG TAB PO PRN (17:00)
[2021-04-03] MEDS ORDERED: HYDROcodone/Acetaminophen 10/325 mg Tablet PO PRN (18:52)
[2021-04-03] MEDS ORDERED: Ondansetron ODT 4 MG TAB PO PRN (18:52)
[2021-04-03] MEDS ORDERED: fentaNYL 50 mcg/hour Patch TD SCH ×2 (19:00→21:00)
[2021-04-03] MEDS: Baclofen 10 MG TAB PO SCH (19:25)
[2021-04-03] MEDS: Pregabalin 75 MG CAP PO SCH (19:26)
[2021-04-03] MEDS: Morphine 4 MG/ML VIAL SLOW IVP PRN (19:50)
[2021-04-03] MEDS ORDERED: Enoxaparin Sodium 40 MG/0.4 ML SYRINGE SC SCH (20:00)
[2021-04-03] MEDS ORDERED: Morphine 4 MG/ML VIAL SLOW IVP SCH (22:30)
[2021-04-03 22:45] VITALS: BMI 36.9
[2021-04-03] MEDS ORDERED: Acetaminophen 325 MG TAB PO SCH (23:59)
[2021-04-04] MEDS: Morphine 4 MG/ML VIAL SLOW IVP PRN ×5 (00:30→20:52)
[2021-04-04] MEDS ORDERED: Ciprofloxacin 500 MG TAB PO SCH ×2 (06:00)
[2021-04-04 06:12] LABS: Hemoglobin 10.2 g/dL (14.0-18.0); Mean Corpuscular HGB CONC 32.9 g/dL (32.0-36.0); Mean Corpuscular Hemoglobin 28.9 pg (27.0-31.0); Mean Corpuscular Volume 87.9 fL (78.0-98.0); Mean Platelet Volume 6.9 fL (7.4-10.4); Platelet Count 447 thou/uL (130-400); RBC Distribution Width 11.9 % (11.5-14.5); Red Blood Cell (RBC) Count 3.52 mill/uL (4.70-6.10); White Blood Cell (WBC) Count 8.9 thou/uL (4.8-10.8)
[2021-04-04 06:22] LABS: ALT (SGPT) 27 U/L (8-55); AST (SGOT) 19 U/L (5-34); Albumin 3.6 g/dL (3.5-5.0); Alkaline Phosphatase 91 U/L (40-110); Anion Gap 17 mmol/L (10-20); BUN (Urea Nitrogen) 13 mg/dL (8.9-20.6); Bilirubin, Total 0.4 mg/dL (0.2-1.2); Calc. Creatinine Clearance 302 mL/min (70-130); Calcium 9.6 mg/dL (7.8-10.44); Carbon Dioxide 20 mmol/L (22-29); Chloride 104 mmol/L (98-107); Globulin 3.4 g/dL (2.4-3.5); Glucose 91 mg/dL (70-105); Potassium 4.1 mmol/L (3.5-5.1); Sodium 137 mmol/L (136-145)
[2021-04-04 06:53] LABS: Band 10 % (5-11); Eosinophils 4 % (0-10); Lymphocytes 23 % (21-51); MDiff Complete? YES; Monocytes 15 % (0-10); Neutrophil 48 % (42-75)
[2021-04-04 07:19] LABS: SARS-CoV-2 NAA Rapid Test Not Detected (NotDetected)
[2021-04-04] MEDS ORDERED: Amoxicillin/Potassium Clav 875 MG TAB PO SCH (09:00)
[2021-04-04] MEDS ORDERED: Fentanyl 100 MCG/2 ML VIAL ONE ×4 (09:29→12:12)
[2021-04-04] MEDS ORDERED: Midazolam HCl 2 mg/2 ml Vial ONE (09:29)
[2021-04-04] MEDS ORDERED: SUGAMMADEX SODIUM 500 MG/5 ML VIAL ONE (09:37)
[2021-04-04] MEDS ORDERED: Lidocaine 1% PF 5 ML VIAL ONE (09:45)
[2021-04-04] MEDS ORDERED: Ondansetron PF 4 MG/2 ML Vial ONE ×2 (09:45→11:27)
[2021-04-04] MEDS ORDERED: Rocuronium Bromide 10 MG/ML (10ML VIAL) ONE (09:45)
[2021-04-04] MEDS ORDERED: PROPOFOL 200 MG/20 ML VIAL ONE (09:45)
[2021-04-04] MEDS ORDERED: Promethazine HCl 25 MG/ML VIAL IVPB PRN (11:19)
[2021-04-04] MEDS ORDERED: Ondansetron HCl/PF 4 MG/2 ML Vial IVP PRN (11:19)
[2021-04-04] MEDS: metFORMIN 500 MG TAB PO SCH (12:30)
[2021-04-04] MEDS: Amlodipine 10 MG TAB PO SCH (12:30)
[2021-04-04] MEDS: Lisinopril 20 MG TAB PO SCH (12:30)
[2021-04-04] MEDS: Baclofen 10 MG TAB PO SCH ×3 (12:31→20:51)
[2021-04-04] MEDS: Polyethylene Glycol 3350 17 GM Packet PO SCH (12:31)
[2021-04-04] MEDS: Pregabalin 75 MG CAP PO SCH ×2 (12:31→20:51)
[2021-04-04] MEDS: VANCOMYCIN 2 GRAM/400 ML BAG 2 GM in Premix Bag 1 BAG IVPB SCH ×2 (13:32→20:51)
[2021-04-04] MEDS: fentaNYL 50 mcg/hour Patch TD SCH (14:51)
[2021-04-04 17:30] LABS: Bilirubin Negative (Negative); Blood, Urine Negative (Negative); Clarity Clear (Clear); Glucose, Urine (Dipstick) Normal (Negative); Ketone, Urine Negative (Negative); Leukocyte Negative Leu/uL (Negative); Nitrite Negative (Negative); Protein, Urine (Dipstick) Negative (Neg-Trace); Specific Gravity, Urine 1.021 (1.002-1.036); Urobilinogen Normal mg/dL (Less than 2)
[2021-04-04 17:37] LABS: Bacteria/HPF None Seen HPF (None Seen); RBC/HPF None Seen HPF (0-3); Squamous Epithelial None Seen HPF (0-3); Urine Culture Reflex No No; WBC/HPF None Seen HPF (0-3)
[2021-04-04] MEDS: Ciprofloxacin 500 MG TAB PO SCH (20:50)
[2021-04-04] MEDS ORDERED: Senokot S 8.6-50 MG TAB PO SCH (21:00)
[2021-04-05] MEDS: HYDROcodone/Acetaminophen 10/325 mg Tablet PO PRN ×2 (00:13→12:32)
[2021-04-05] MEDS: Melatonin 3 MG TAB PO PRN ×2 (00:27→23:33)
[2021-04-05] MEDS: Morphine 4 MG/ML VIAL SLOW IVP PRN ×5 (01:13→23:33)
[2021-04-05] MEDS: VANCOMYCIN 2 GRAM/400 ML BAG 2 GM in Premix Bag 1 BAG IVPB SCH ×2 (05:17→15:25)
[2021-04-05] MEDS: Ciprofloxacin 500 MG TAB PO SCH ×2 (05:19→21:14)
[2021-04-05] MEDS: metFORMIN 500 MG TAB PO SCH ×2 (08:05→12:35)
[2021-04-05 08:34] LABS: #Eosinphils 0.4 thou/uL (0.0-0.7); #Lymphocytes 2.3 thou/uL (1.20-3.40); #Monocytes 0.9 thou/uL (0.11-0.59); #Neutrophils 2.5 thou/uL (1.40-6.50); %Basophils 0.7 % (0.0-1.0); %Eosinophils 6.1 % (0.0-10.0); %Lymphocytes 37.2 % (21.0-51.0); %Monocytes 14.5 % (0.0-10.0); %Neutrophils 41.5 % (42.0-75.0); Hemoglobin 10.6 g/dL (14.0-18.0); Mean Corpuscular HGB CONC 32.6 g/dL (32.0-36.0); Mean Platelet Volume 6.9 fL (7.4-10.4); Platelet Count 436 thou/uL (130-400); RBC Distribution Width 11.8 % (11.5-14.5); Red Blood Cell (RBC) Count 3.65 mill/uL (4.70-6.10); White Blood Cell (WBC) Count 6.1 thou/uL (4.8-10.8)
[2021-04-05] MEDS ORDERED: Enoxaparin Sodium 60 MG/0.6 ML SYRINGE SC SCH (11:45)
[2021-04-05] MEDS: Amlodipine 10 MG TAB PO SCH (12:34)
[2021-04-05] MEDS: Lisinopril 20 MG TAB PO SCH (12:34)
[2021-04-05] MEDS: Pregabalin 75 MG CAP PO SCH ×2 (12:35→21:14)
[2021-04-05] MEDS: Baclofen 10 MG TAB PO SCH ×3 (12:36→21:14)
[2021-04-05] MEDS: Polyethylene Glycol 3350 17 GM Packet PO SCH (12:44)
[2021-04-05 12:57] LABS: Vancomycin, Trough 21.6 ug/mL
[2021-04-05] MEDS: Vancomycin 1.5 GRAM/300 ML BAG 1.5 GM in Premix Bag 1 BAG IVPB SCH ×2 (14:15→21:15)
[2021-04-06] MEDS: Ciprofloxacin 500 MG TAB PO SCH ×2 (06:16→20:56)
[2021-04-06] MEDS: Vancomycin 1.5 GRAM/300 ML BAG 1.5 GM in Premix Bag 1 BAG IVPB SCH ×3 (06:16→22:47)
[2021-04-06] MEDS: HYDROcodone/Acetaminophen 10/325 mg Tablet PO PRN (06:30)
[2021-04-06] MEDS ORDERED: Docusate 100 MG CAP PO PRN (08:23)
[2021-04-06] MEDS ORDERED: Naloxone HCl 0.4 mg/ml Vial IV PRN (08:40)
[2021-04-06] MEDS: metFORMIN 500 MG TAB PO SCH (09:11)
[2021-04-06] MEDS: Baclofen 10 MG TAB PO SCH ×3 (09:12→20:56)
[2021-04-06] MEDS: Lisinopril 20 MG TAB PO SCH (09:12)
[2021-04-06] MEDS: Amlodipine 10 MG TAB PO SCH (09:12)
[2021-04-06] MEDS: Pregabalin 75 MG CAP PO SCH ×2 (09:12→20:57)
[2021-04-06] MEDS: Polyethylene Glycol 3350 17 GM Packet PO SCH ×3 (09:13→20:56)
[2021-04-06] MEDS: Morphine 4 MG/ML VIAL SLOW IVP PRN ×3 (10:07→22:46)
[2021-04-06] MEDS ORDERED: Chloraseptic Spray 180 ml Bottle PO PRN (11:42)
[2021-04-06] MEDS: Glycerin Adult Supp. (24 ct jar) PR SCH ×2 (13:51→14:30)
[2021-04-06] MEDS: fentaNYL 50 mcg/hour Patch TD SCH (15:21)
[2021-04-06 19:46] LABS: Anion Gap 17 mmol/L (10-20); BUN (Urea Nitrogen) 9 mg/dL (8.9-20.6); Calc. Creatinine Clearance 288 mL/min (70-130); Carbon Dioxide 19 mmol/L (22-29); Chloride 104 mmol/L (98-107); Glucose 139 mg/dL (70-105); Potassium 3.5 mmol/L (3.5-5.1); Sodium 136 mmol/L (136-145)
[2021-04-07] MEDS: Melatonin 3 MG TAB PO PRN ×2 (00:14→23:25)
[2021-04-07] MEDS: HYDROcodone/Acetaminophen 10/325 mg Tablet PO PRN ×2 (00:14→21:00)
[2021-04-07 05:51] LABS: Anion Gap 15 mmol/L (10-20); BUN (Urea Nitrogen) 11 mg/dL (8.9-20.6); Calc. Creatinine Clearance 297 mL/min (70-130); Calcium 10.1 mg/dL (7.8-10.44); Carbon Dioxide 22 mmol/L (22-29); Chloride 104 mmol/L (98-107); Glucose 92 mg/dL (70-105); Potassium 3.6 mmol/L (3.5-5.1); Sodium 137 mmol/L (136-145)
[2021-04-07 05:55] LABS: Vancomycin, Trough 22.2 ug/mL
[2021-04-07] MEDS: Vancomycin 1.5 GRAM/300 ML BAG 1.5 GM in Premix Bag 1 BAG IVPB SCH (06:28)
[2021-04-07] MEDS: Ciprofloxacin 500 MG TAB PO SCH ×2 (06:34→20:48)
[2021-04-07] MEDS: metFORMIN 500 MG TAB PO SCH (07:40)
[2021-04-07] MEDS: Pregabalin 75 MG CAP PO SCH ×2 (07:40→20:49)
[2021-04-07] MEDS: Amlodipine 10 MG TAB PO SCH (07:40)
[2021-04-07] MEDS: Baclofen 10 MG TAB PO SCH ×4 (07:40→20:48)
[2021-04-07] MEDS: Lisinopril 20 MG TAB PO SCH (07:41)
[2021-04-07] MEDS: Polyethylene Glycol 3350 17 GM Packet PO SCH ×4 (07:41→20:49)
[2021-04-07] MEDS: Glycerin Adult Supp. (24 ct jar) PR SCH (07:42)
[2021-04-07] MEDS ORDERED: Magnevist 469MG/ML 20 ML VIAL ONE ×2 (09:00)
[2021-04-07 11:39] LABS: Bacteria/HPF None Seen HPF (None Seen); Bilirubin Negative (Negative); Blood, Urine Negative (Negative); Clarity Clear (Clear); Glucose, Urine (Dipstick) Normal (Negative); Ketone, Urine Negative (Negative); Leukocyte Negative Leu/uL (Negative); Nitrite Negative (Negative); Protein, Urine (Dipstick) Negative (Neg-Trace); RBC/HPF 0-3 HPF (0-3); Specific Gravity, Urine 1.013 (1.002-1.036); Squamous Epithelial 0-3 HPF (0-3); Urobilinogen Normal mg/dL (Less than 2); WBC/HPF 0-3 HPF (0-3); pH, Urine 5.5 (5.0-9.0)
[2021-04-07 11:40] LABS: Urine Culture Reflex No No
[2021-04-07] MEDS ORDERED: Fentanyl 100 MCG/2 ML VIAL ONE ×3 (13:08→16:06)
[2021-04-07] MEDS ORDERED: VANCOMYCIN 1.25 GM/250 ML BAG 1.25 GM in Premix Bag 1 BAG IVPB SCH (14:00)
[2021-04-07] MEDS: Morphine 4 MG/ML VIAL SLOW IVP PRN ×2 (16:56→23:25)
[2021-04-07] MEDS: fentaNYL 50 mcg/hour Patch TD SCH (16:57)
[2021-04-08] MEDS: Morphine 4 MG/ML VIAL SLOW IVP PRN ×3 (05:52→20:24)
[2021-04-08] MEDS: Ciprofloxacin 500 MG TAB PO SCH ×2 (05:52→20:24)
[2021-04-08 06:03] LABS: Anion Gap 14 mmol/L (10-20); BUN (Urea Nitrogen) 13 mg/dL (8.9-20.6); Calc. Creatinine Clearance 271 mL/min (70-130); Calcium 9.8 mg/dL (7.8-10.44); Carbon Dioxide 24 mmol/L (22-29); Chloride 105 mmol/L (98-107); Glucose 90 mg/dL (70-105); Potassium 3.3 mmol/L (3.5-5.1); Sodium 140 mmol/L (136-145)
[2021-04-08] MEDS ORDERED: Potassium Chloride 20 MEQ TAB PO SCH (06:30)
[2021-04-08] MEDS: HYDROcodone/Acetaminophen 10/325 mg Tablet PO PRN (07:22)
[2021-04-08] MEDS: Pregabalin 75 MG CAP PO SCH ×2 (08:04→20:23)
[2021-04-08] MEDS: Amlodipine 10 MG TAB PO SCH (08:05)
[2021-04-08] MEDS: Baclofen 10 MG TAB PO SCH ×3 (08:05→20:23)
[2021-04-08] MEDS: Polyethylene Glycol 3350 17 GM Packet PO SCH ×3 (08:05→20:24)
[2021-04-08] MEDS: Lisinopril 20 MG TAB PO SCH (08:05)
[2021-04-08] MEDS: metFORMIN 500 MG TAB PO SCH (08:05)
[2021-04-08] MEDS: Glycerin Adult Supp. (24 ct jar) PR SCH ×2 (11:53→16:04)
[2021-04-09] MEDS: HYDROcodone/Acetaminophen 10/325 mg Tablet PO PRN (00:13)
[2021-04-09] MEDS: Morphine 4 MG/ML VIAL SLOW IVP PRN ×4 (02:26→20:35)
[2021-04-09 05:24] LABS: Vancomycin, Trough Less than 1.1 ug/mL
[2021-04-09 05:25] LABS: Anion Gap 16 mmol/L (10-20); BUN (Urea Nitrogen) 12 mg/dL (8.9-20.6); Calc. Creatinine Clearance 275 mL/min (70-130); Calcium 9.5 mg/dL (7.8-10.44); Carbon Dioxide 24 mmol/L (22-29); Chloride 104 mmol/L (98-107); Glucose 95 mg/dL (70-105); Potassium 3.7 mmol/L (3.5-5.1); Sodium 140 mmol/L (136-145)
[2021-04-09] MEDS: Ciprofloxacin 500 MG TAB PO SCH ×2 (05:55→20:34)
[2021-04-09] MEDS: metFORMIN 500 MG TAB PO SCH (08:41)
[2021-04-09] MEDS: Baclofen 10 MG TAB PO SCH ×3 (08:41→20:34)
[2021-04-09] MEDS: Amlodipine 10 MG TAB PO SCH (08:41)
[2021-04-09] MEDS: Pregabalin 75 MG CAP PO SCH ×2 (08:41→20:34)
[2021-04-09] MEDS: Glycerin Adult Supp. (24 ct jar) PR SCH ×2 (08:42→18:26)
[2021-04-09] MEDS: Polyethylene Glycol 3350 17 GM Packet PO SCH ×3 (08:42→20:34)
[2021-04-09] MEDS: Lisinopril 20 MG TAB PO SCH (08:42)
[2021-04-09] MEDS ORDERED: Magnesium Citrate 300 ML BOT PO SCH (09:00)
[2021-04-09] MEDS ORDERED: fentaNYL 50 mcg/hour Patch TD SCH (14:00)
[2021-04-09] MEDS: Melatonin 3 MG TAB PO PRN (20:34)
[2021-04-09] MEDS: Amoxicillin/Potassium Clav 875 MG TAB PO SCH (20:34)
[2021-04-10] MEDS: Ciprofloxacin 500 MG TAB PO SCH ×2 (05:57→20:34)
[2021-04-10] MEDS: Morphine 4 MG/ML VIAL SLOW IVP PRN ×4 (05:59→23:35)
[2021-04-10 06:21] LABS: Anion Gap 15 mmol/L (10-20); BUN (Urea Nitrogen) 8 mg/dL (8.9-20.6); Calc. Creatinine Clearance 292 mL/min (70-130); Calcium 9.6 mg/dL (7.8-10.44); Carbon Dioxide 22 mmol/L (22-29); Chloride 103 mmol/L (98-107); Glucose 92 mg/dL (70-105); Potassium 3.9 mmol/L (3.5-5.1); Sodium 136 mmol/L (136-145)
[2021-04-10] MEDS: Lisinopril 20 MG TAB PO SCH (08:36)
[2021-04-10] MEDS: Amoxicillin/Potassium Clav 875 MG TAB PO SCH ×2 (08:36→20:34)
[2021-04-10] MEDS: Pregabalin 75 MG CAP PO SCH ×2 (08:37→20:34)
[2021-04-10] MEDS: Amlodipine 10 MG TAB PO SCH (08:37)
[2021-04-10] MEDS: metFORMIN 500 MG TAB PO SCH (08:38)
[2021-04-10] MEDS: Polyethylene Glycol 3350 17 GM Packet PO SCH (08:38)
[2021-04-10] MEDS: Glycerin Adult Supp. (24 ct jar) PR SCH (08:38)
[2021-04-10] MEDS: Baclofen 10 MG TAB PO SCH ×3 (08:38→20:34)
[2021-04-10] MEDS ORDERED: Polyethylene Glycol 3350 17 GM Packet PO SCH (12:00)
[2021-04-10] MEDS: HYDROcodone/Acetaminophen 10/325 mg Tablet PO PRN (14:43)
[2021-04-10] MEDS: fentaNYL 50 mcg/hour Patch TD SCH (17:04)
[2021-04-10] MEDS ORDERED: GoLYTELY 4,000 ml Bottle PO SCH (17:30)
[2021-04-11] MEDS: Ciprofloxacin 500 MG TAB PO SCH ×2 (05:22→20:17)
[2021-04-11 06:22] LABS: Anion Gap 12 mmol/L (10-20); BUN (Urea Nitrogen) 9 mg/dL (8.9-20.6); Calc. Creatinine Clearance 279 mL/min (70-130); Calcium 9.5 mg/dL (7.8-10.44); Carbon Dioxide 25 mmol/L (22-29); Chloride 101 mmol/L (98-107); Glucose 90 mg/dL (70-105); Potassium 3.3 mmol/L (3.5-5.1); Sodium 135 mmol/L (136-145)
[2021-04-11] MEDS: Morphine 4 MG/ML VIAL SLOW IVP PRN ×2 (08:14→15:02)
[2021-04-11] MEDS: Pregabalin 75 MG CAP PO SCH ×2 (08:41→20:17)
[2021-04-11] MEDS: Glycerin Adult Supp. (24 ct jar) PR SCH (08:41)
[2021-04-11] MEDS: Baclofen 10 MG TAB PO SCH ×3 (08:41→20:17)
[2021-04-11] MEDS: Lisinopril 20 MG TAB PO SCH (08:42)
[2021-04-11] MEDS: Amoxicillin/Potassium Clav 875 MG TAB PO SCH ×2 (08:42→20:17)
[2021-04-11] MEDS: metFORMIN 500 MG TAB PO SCH (08:42)
[2021-04-11] MEDS: Amlodipine 10 MG TAB PO SCH (08:42)
[2021-04-11] MEDS: HYDROcodone/Acetaminophen 10/325 mg Tablet PO PRN (11:45)
[2021-04-12] MEDS: Morphine 4 MG/ML VIAL SLOW IVP PRN ×2 (00:32→08:24)
[2021-04-12] MEDS: Ciprofloxacin 500 MG TAB PO SCH (05:34)
[2021-04-12 07:07] LABS: Anion Gap 17 mmol/L (10-20); BUN (Urea Nitrogen) 9 mg/dL (8.9-20.6); Calc. Creatinine Clearance 279 mL/min (70-130); Calcium 9.3 mg/dL (7.8-10.44); Carbon Dioxide 21 mmol/L (22-29); Chloride 103 mmol/L (98-107); Glucose 86 mg/dL (70-105); Potassium 3.5 mmol/L (3.5-5.1); Sodium 137 mmol/L (136-145)
[2021-04-12] MEDS: Lisinopril 20 MG TAB PO SCH (08:29)
[2021-04-12] MEDS: metFORMIN 500 MG TAB PO SCH (08:29)
[2021-04-12] MEDS: Amlodipine 10 MG TAB PO SCH (08:30)
[2021-04-12] MEDS: Pregabalin 75 MG CAP PO SCH (08:31)
[2021-04-12] MEDS: Baclofen 10 MG TAB PO SCH (08:31)
[2021-04-12] MEDS: Glycerin Adult Supp. (24 ct jar) PR SCH (08:31)
[2021-04-12] MEDS: Amoxicillin/Potassium Clav 875 MG TAB PO SCH (08:31)
[2021-04-12 11:58] VITALS: BP 125/80; TEMP 98
== END 2021-04-12 15:00 | disposition home or self-care (01) | DRG 871 ==
LOC: ERS 15:00 → T4-A 17:34 → OBSVTOIN 04-04 14:45
PROVIDERS: ADMIT Emergency Medicine; ATTEND Emergency Medicine
PROC: 0T9B70Z Drainage of Bladder with Drainage Device, Via Natural or Artificial Opening (ICD-10-PCS; principal; 2021-04-07)
DX: A41.9 Sepsis, unspecified organism (principal); L89.314 Pressure ulcer of right buttock, stage 4; G83.4 Cauda equina syndrome; G82.21 Paraplegia, complete; M51.04 Intervertebral disc disorders with myelopathy, thoracic region; L03.317 Cellulitis of buttock; Z20.822 Contact with and (suspected) exposure to COVID-19; E11.9 Type 2 diabetes mellitus without complications; I10 Essential (primary) hypertension; G89.29 Other chronic pain; K59.00 Constipation, unspecified; N49.2 Inflammatory disorders of scrotum; N31.9 Neuromuscular dysfunction of bladder, unspecified; M48.04 Spinal stenosis, thoracic region; Z79.899 Other long term (current) drug therapy; Z79.84 Long term (current) use of oral hypoglycemic drugs
CPT/HCPCS: 36415; 51798; 71045; 72070; 72157; 72158; 72193; 72197; 74018; 80048; 80053; 80202; 81001; 83605; 84145; 85007; 85025; 85027; 85652; 86140; 87040; 87070; 87077; 87186; 87205; 96372; 96374; 96375; 96376; A9579; G0378; J1650; J2250; J2270; J2405; J2704; J3010; J3370; Q0162; Q9967; U0002; U0005